=== PATIENT | male | born 1950 ===

== ENCOUNTER 2019-06-15 08:31 | Day surgery (SDC) | payer MEDICARE ==
[~2019-06-15] VITALS: Ht 185.4 cm; Wt 98.6 kg
[2019-06-15] MEDS ORDERED: ALLO300 (09:10)
== END 2019-06-15 11:01 | disposition home or self-care (01) ==
LOC: ORSCSDS 08:31
PROVIDERS: Internal Medicine Gastroenterology
PROC: 0DBK8ZX Excision of Ascending Colon, Via Natural or Artificial Opening Endoscopic, Diagnostic (ICD-10-PCS; principal; 2019-06-15 09:45)
PROC: 0DBH8ZX Excision of Cecum, Via Natural or Artificial Opening Endoscopic, Diagnostic (ICD-10-PCS; principal; 2019-06-15 09:45)
DX: Z12.11 Encounter for screening for malignant neoplasm of colon (principal); Z86.010 Personal history of colon polyps; D12.0 Benign neoplasm of cecum; D12.2 Benign neoplasm of ascending colon; K57.30 Diverticulosis of large intestine without perforation or abscess without bleeding; E78.5 Hyperlipidemia, unspecified; Z79.899 Other long term (current) drug therapy
CPT/HCPCS: 88305; J2704; J7120

== ENCOUNTER 2024-09-20 12:18 | Day surgery (SDC) | payer MEDICARE ==
[~2024-09-20] VITALS: Ht 185.4 cm; Wt 92.8 kg
[~2024-09-20 12:18] MED LIST: ALLO300
[2024-09-20] MEDS ORDERED: EZALLOR SPRINKL10 MG (12:32)
[2024-09-20] MEDS ORDERED: METF500 (12:32)
[2024-09-20] MEDS ORDERED: IBUP200 (12:33)
[2024-09-20] MEDS ORDERED: Lactated Ringer's 1,000 ML IV ONE ×2 (13:09→13:25)
[2024-09-20] MEDS ORDERED: propofoL 40 ML IV ONE (13:25)
[2024-09-20 14:43] VITALS: BP 126/88
== END 2024-09-20 14:43 | disposition home or self-care (01) ==
LOC: ORSCSDS 12:18
PROVIDERS: Surgery
PROC: 0DBH8ZX Excision of Cecum, Via Natural or Artificial Opening Endoscopic, Diagnostic (ICD-10-PCS; principal; 2024-09-20 13:30)
DX: Z12.11 Encounter for screening for malignant neoplasm of colon (principal); Z86.0101 Personal history of adenomatous and serrated colon polyps; D12.0 Benign neoplasm of cecum; K57.30 Diverticulosis of large intestine without perforation or abscess without bleeding; E78.5 Hyperlipidemia, unspecified; Z79.899 Other long term (current) drug therapy
CPT/HCPCS: 88305; J2704; J7120